=== PATIENT | male | born 1995 | race Caucasian/White ===

== ENCOUNTER 2019-10-28 21:31 | Emergency (ER) | payer BC, OTHER ==
--- NOTE | 2019-10-28 21:50 | ERPHSYRPT ---
- History of Present Illness Time Seen by Provider: 10/28/19 21:40 Source: patient Exam Limitations: no limitations Physician History: This is a 24-year-old right-handed male who presents with an injury to his right thumb. It occurred prior to arrival. 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 Patient had a lot of pain at the time of the original injury. However he presents now with a 3 out of 10 pain. Patient has not used anything for pain control. Occurred: just prior to arrival Method of Injury: direct blow Quality: aching, throbbing Severity of Pain-Max: moderate Severity of Pain-Current: mild Extremities Pain Location: thumb: right Modifying Factors: Improves With: movement Associated Symptoms: none Allergies/Adverse Reactions: No Known Drug Allergies Allergy (Verified 10/28/19 21:38) Home Medications: No Reportable Medications [No Reported Medications] 10/28/19 [History] Hx Tetanus, Diphtheria Vaccination/Date Given: Yes Hx Influenza Vaccination/Date Given: No Hx Pneumococcal Vaccination/Date Given: No - Review of Systems Constitutional: No Symptoms Eyes: No Symptoms Ears, Nose, & Throat: No Symptoms Respiratory: No Symptoms Cardiac: No Symptoms Abdominal/Gastrointestinal: No Symptoms Genitourinary Symptoms: No Symptoms Musculoskeletal: Injury (Right thumb) Skin: No Symptoms Neurological: No Symptoms Psychological: No Symptoms Endocrine: No Symptoms Hematologic/Lymphatic: No Symptoms Immunological/Allergic: No Symptoms All Other Systems: Reviewed and Negative - Past Medical History Pertinent Past Medical History: Yes Neurological History: No Pertinent History ENT History: No Pertinent History Cardiac History: No Pertinent History Respiratory History: Asthma, Bronchitis, Pneumonia Endocrine Medical History: No Pertinent History Musculoskeletal History: No Pertinent History GI Medical History: No Pertinent History History: No Pertinent History Psycho-Social History: No Pertinent History Male Reproductive Disorders: No Pertinent History Other Medical History: has three kidneys - Past Surgical History Past Surgical History: No Neuro Surgical History: No Pertinent History Cardiac: No Pertinent History Respiratory: No Pertinent History Gastrointestinal: No Pertinent History Genitourinary: No Pertinent History Musculoskeletal: No Pertinent History Male Surgical History: No Pertinent History - Social History Smoking Status: Never smoker Exposure to second hand smoke: No Drug Use: none Patient Lives Alone: Yes - Nursing Vital Signs Nursing Vital Signs: Initial Vital Signs Temperature 98.1 F 10/28/19 21:42 Pulse Rate 75 10/28/19 21:42 Respiratory Rate 18 10/28/19 21:42 Blood Pressure 127/65 10/28/19 21:42 O2 Sat by Pulse Oximetry 100 10/28/19 21:42 Pain Scale Pain Intensity 3 - Physical Exam General Appearance: no apparent distress, alert, anxiety (Mild) Eyes, Ears, Nose, Throat Exam: normal ENT inspection, moist mucous membranes Neck Exam: normal inspection, non-tender, supple, full range of motion Cardiovascular/Respiratory Exam: chest non-tender Abdominal Exam: non-tender Back Exam: normal inspection, normal range of motion, No CVA tenderness, No vertebral tenderness Shoulder Exam: normal inspection, non-tender, no evidence of injury, normal ROM Elbow/Forearm Exam: normal inspection, non-tender, no evidence of injury, normal ROM Wrist Exam: normal inspection, non-tender, no evidence of injury, normal ROM Hand Exam: bone tenderness (Right thumb DIP joint), swelling (Dorsal DIP joint) Neuro/Tendon Exam: normal sensation, normal motor functions, normal tendon functions, responds to pain, no evidence tendon injury Skin Exam: normal color, warm, dry SpO2 Interpretation: normal O2 Delivery: Room Air - Course Nursing assessment & vital signs reviewed: Yes Ordered Tests: Active Orders 24 hr Category Date Time Status HAND (MINIMUM 3 VIEWS) Stat Exams 10/28/19 21:43 Ordered - Progress Progress: unchanged Progress Note: 10/28/19 22:08 X-ray of right hand reveals no evidence of any acute fracture or dislocation of the right thumb or any other digit. Counseled pt/family regarding: diagnosis, need for follow-up, rad results - Departure Departure Disposition: Home Clinical Impression: Injury of right thumb Condition: Stable Critical Care Time: No Referrals: DOCTOR,NO FAMILY [Primary Care Provider] - Additional Instructions: Thom hand into ice bath 3 times a day for the next 48 hours. Use Tylenol ibuprofen for pain. Follow-up with your primary care physician for persistent or worsening symptoms.
[2019-10-28 22:00] VITALS: O2SAT 100
[2019-10-28] MEDS ORDERED: PERCOCET TABLET 5/325MG PO STA (22:10)
[2019-10-28] MEDS ORDERED: PERCOCET TABLET 5/325MG ONE (22:24)
[2019-10-28 22:36] VITALS: BP 116/69; PULSE 93
--- NOTE | 2019-10-29 08:46 | XRAY ---
Indication: Thumb pain following crush injury. Comparison: None 3 views of the right hand demonstrates mild 1st phalangeal soft tissue swelling. No other bony, articular, or soft tissue abnormalities.
== END 2019-10-28 22:56 | disposition home or self-care (01) ==
LOC: ED 21:31
DX: S60.011A Contusion of right thumb without damage to nail, initial encounter (principal); W22.8XXA Striking against or struck by other objects, initial encounter; M79.644 Pain in right finger(s)
CPT/HCPCS: 73130; 99283; A9270-GY

== ENCOUNTER 2020-10-23 20:07 | Emergency (ER) | payer BC, OTHER ==
[2020-10-23] MEDS ORDERED: XYLOCAINE 1% HCL 20 ML MDV IJ ONE (20:08)
--- NOTE | 2020-10-23 20:10 | ERPHSYRPT ---
- History of Present Illness Time Seen by Provider: 10/23/20 20:09 Source: patient Exam Limitations: no limitations Physician History: This is a 25-year-old white male with poor dentition chronically. Patient was seen in the [facility] yesterday and was given clindamycin antibiotic. He started that yesterday afternoon. He has been using Tylenol and ibuprofen and it is not helping his pain. He would like better pain control. Timing/Duration: gradual onset Severity: moderate ENT Location: dental Prearrival Treatment: prescription meds Modifying Factors: Improves With: nothing Associated Symptoms: tooth pain Allergies/Adverse Reactions: No Known Drug Allergies Allergy (Verified 10/23/20 20:12) Home Medications: Clindamycin HCl 300 mg PO Q8H 10/23/20 [History] Hx Tetanus, Diphtheria Vaccination/Date Given: Yes Hx Influenza Vaccination/Date Given: No Hx Pneumococcal Vaccination/Date Given: No Travel Risk - International Travel Have you traveled outside of the country in past 3 weeks: No - Coronavirus Screening Are you exhibiting any of the following symptoms?: No Close contact with a COVID-19 positive Pt in past 14-21 Days: No - Review of Systems Constitutional: No Symptoms Eyes: No Symptoms Ears, Nose, & Throat: Loose Teeth, Other (Dental pain) Respiratory: No Symptoms Cardiac: No Symptoms Abdominal/Gastrointestinal: No Symptoms Genitourinary Symptoms: No Symptoms Musculoskeletal: No Symptoms Skin: No Symptoms Neurological: No Symptoms Psychological: No Symptoms Endocrine: No Symptoms Hematologic/Lymphatic: No Symptoms Immunological/Allergic: No Symptoms All Other Systems: Reviewed and Negative - Past Medical History Pertinent Past Medical History: Yes Neurological History: No Pertinent History ENT History: No Pertinent History Cardiac History: No Pertinent History Respiratory History: Asthma, Bronchitis, Pneumonia Endocrine Medical History: No Pertinent History Musculoskeletal History: No Pertinent History GI Medical History: No Pertinent History History: No Pertinent History Psycho-Social History: No Pertinent History Male Reproductive Disorders: No Pertinent History Other Medical History: has three kidneys - Past Surgical History Past Surgical History: No Neuro Surgical History: No Pertinent History Cardiac: No Pertinent History Respiratory: No Pertinent History Gastrointestinal: No Pertinent History Genitourinary: No Pertinent History Musculoskeletal: No Pertinent History Male Surgical History: No Pertinent History - Social History Smoking Status: Never smoker Exposure to second hand smoke: No Drug Use: none Patient Lives Alone: Yes - Nursing Vital Signs Nursing Vital Signs: Initial Vital Signs Temperature 97.4 F 10/23/20 20:14 Pulse Rate 55 L 10/23/20 20:14 Respiratory Rate 18 10/23/20 20:14 Blood Pressure 139/83 10/23/20 20:14 O2 Sat by Pulse Oximetry 99 10/23/20 20:14 Pain Scale Pain Intensity 8 - Physical Exam General Appearance: no apparent distress, alert, anxiety Eye Exam: bilateral eye: normal inspection, PERRL, EOMI Ear Exam: bilateral ear: auricle normal Nasal Exam: normal inspection Throat Exam: dental tenderness (Widespread dental caries. Gingivitis present. 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 nml as tested, normal mood/affect, nml cerebellar function, nml station & gait, sensation nml Skin Exam: normal color, warm, dry SpO2 Interpretation: normal O2 Delivery: Room Air - Course Nursing assessment & vital signs reviewed: Yes Ordered Tests: Medication Summary Discontinued Medications Generic Name Dose Route Start Last Admin Trade Name Freq PRN Reason Stop Dose Admin Ceftriaxone Sodium 1,000 mg 10/23/20 20:29 Rocephin 1000 Mg Inj IM 10/23/20 20:30 STAT ONE Oxycodone/Acetaminophen 2 tab 10/23/20 20:30 Oxycodone-Acetaminophen 10-325 PO 10/23/20 20:31 SENT HOME W/ PATIENT STA - Progress Progress: unchanged Counseled pt/family regarding: diagnosis, need for follow-up - Departure Departure Disposition: Home Clinical Impression: Dental caries, Pain due to dental caries Condition: Stable Critical Care Time: No Referrals: DOCTOR,NO FAMILY [Primary Care Provider] - Additional Instructions: Continue Tylenol and ibuprofen as discussed. Follow-up with dentist if your carlos n persist. Continue your antibiotic medication.
[2020-10-23] MEDS ORDERED: Rocephin 1000 MG INJ IM ONE (20:29)
[2020-10-23 20:30] VITALS: O2SAT 99
[2020-10-23] MEDS ORDERED: OXYCODONE-ACETAMINOPHEN 10-325 PO STA (20:30)
[2020-10-23] MEDS ORDERED: Rocephin 1000 MG INJ ONE (20:41)
[2020-10-23] MEDS ORDERED: OXYCODONE-ACETAMINOPHEN 10-325 ONE (20:41)
[2020-10-23 21:06] VITALS: BP 114/81; PULSE 60
== END 2020-10-23 21:06 | disposition home or self-care (01) ==
LOC: ED 20:07
DX: K02.9 Dental caries, unspecified (principal)
CPT/HCPCS: 96372; 99283; J0696; A9270-GY